=== PATIENT | male | born 1980 | race Caucasian/White ===

== ENCOUNTER 2024-04-14 09:57 | Emergency (ER) | payer OTHER ==
[~2024-04-14] VITALS: Ht 177.8 cm; Wt 79.4 kg
[2024-04-14 10:00] VITALS: O2SAT 99
[2024-04-14] MEDS ORDERED: IBUP-1955 PO (10:47)
[2024-04-14] MEDS ORDERED: CLIN300C12 PO (10:47)
== END 2024-04-14 11:08 | disposition home or self-care (01) ==
LOC: ER 10:04
DX: M27.2 Inflammatory conditions of jaws (principal); Z79.899 Other long term (current) drug therapy
CPT/HCPCS: A4606; A4663